=== PATIENT | male | born 1960 | race Caucasian/White ===

== ENCOUNTER 2017-01-24 02:34 | Emergency (ER) | payer OTHER ==
[2017-01-24 03:55] VITALS: BP 193/107; PULSE 75; TEMP 97.5; BMI 37.1
[2017-01-24] MEDS ORDERED: hydrALAZINE HCL 20 MG/ML VIAL IVPUSH ONE (03:57)
[2017-01-24] MEDS ORDERED: hydrALAZINE HCL 20 MG/ML VIAL ONE (04:11)
[2017-01-24 04:37] LABS: BASOPHIL 0.9 % (0-2.0); MCH 29.7 pg (25.7-33.7); MCHC 32.9 g/dl (32.0-35.9); MEAN CELL VOLUME 90.1 fl (80-96); MEAN PLT VOLUME 9.4 fl (7.5-11.1); NEUTROPHILS 64.3 % (42.8-82.8); PLATELET COUNT 222 K/MM3 (134-434); WHITE BLOOD COUNT 9.4 K/mm3 (4.0-10.0)
--- NOTE | 2017-01-24 04:46 | PDOC ---
History of Present Illness - General Chief Complaint: Shortness of Breath Stated Complaint: SOB Time Seen by Provider: 01/24/17 03:05 - History of Present Illness Initial Comments: 01/24/17 04:46 CHIEF COMPLAINT: sob HISTORY OF PRESENT ILLNESS: 56 yo M with hx of HTN presents to ED with cough x 3 days and shortness of breath today. Patient reports the cough as productive. Patient denies any fever, chills, nausea, vomiting, or diarrhea. PAST MEDICAL HISTORY: HTN FAMILY HISTORY: Denies SOCIAL HISTORY: LDenies tobacco, alcohol, illicit drug use. SURGICAL HISTORY: Denies ALLERGIES: No known drug allergies REVIEW OF SYSTEMS General/Constitutional: Denies fever or chills. Denies weakness, weight change. HEENT: Denies change in vision. Denies ear pain or discharge. Denies sore throat. Cardiovascular: Denies chest pain or shortness of breath. Respiratory: Productive cough x 3 days. Denies wheezing or hemoptysis. Gastrointestinal: Denies nausea, vomiting, diarrhea or constipation. Denies rectal bleeding. Genitourinary: Denies dysuria, frequency, or change in urination. Musculoskeletal: Denies joint or muscle swelling or pain. Denies neck or back pain. Skin and breasts: Denies rash or easy bruising. PHYSICAL EXAM General Appearance: Well-appearing, appropriately dressed. No apparent distress. HEENT: EOMI, PERRLA, normal ENT inspection, normal voice, TMs normal, pharynx normal. No conjunctival pallor. No photophobia, scleral icterus. Neck: Supple. Trachea midline. No tenderness, rigidity, carotid bruit, stridor , lymphadenopathy, or thyromegaly. Respiratory/Chest: Lungs CTAB. Cardiovascular: RRR. S1, S2. Gastrointestinal/Abdominal: Normal bowel sounds. Abdomen soft, non-distended. No tenderness or rebound tenderness. No organomegaly, pulsatile mass, guarding , hernia, hepatomegaly, splenomegaly. Musculoskeletal/Extremities: Normal inspection. FROM of all extremities, normal capillary refill. Pelvis Stable. No CVA tenderness. No tenderness to extremities, pedal edema, swelling, erythema or deformity. Integumentary: Appropriate color, dry, warm. 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 Fully oriented, alert. Appropriate mood/affect. Motor strength 5/5. No appreciable EOM palsy, facial droop or sensory deficit. 01/24/17 04:46 01/24/17 05:53 01/24/17 05:58 Past History - Past Medical History Allergies/Adverse Reactions: Allergies Allergy/AdvReac Type Severity Reaction Status Date / Time No Known Allergies Allergy Verified 06/06/15 05:28 Home Medications: Ambulatory Orders Amlodipine Besylate 10 mg PO DAILY 01/24/17 Azithromycin [Zithromax 250mg Tablets -] 250 mg PO ASDIR #5 tablet 01/24/17 Losartan/Hydrochlorothiazide [Losartan-Hctz 100-25 mg Tab] 1 each PO DAILY 01/24 Anemia: No Asthma: No Cancer: No Cardiac Disorders: No CVA: No COPD: No DVT: No Dementia: No Diabetes: No Dialysis: No GI Disorders: No Disorders: No HTN: Yes HIV: No Kidney Stones: No Liver Disease: No Psychiatric Problems: No Seizures: No Thyroid Disease: No Lung CA: No - Surgical History Abdominal Surgery: No Appendectomy: No Cardiac Surgery: No Cholecystectomy: No Gastric Stapling: No GI Surgery: No Lung Surgery: No Neurologic Surgery: No - Immunization History Immunization Up to Date: Yes - Psycho/Social/Smoking Cessation Hx Suicidal Ideation: No Smoking History: Unknown if ever smoked Information on smoking cessation initiated: No Hx Alcohol Use: No Drug/Substance Use Hx: No *Physical Exam - Vital Signs Last Vital Signs Temp Pulse Resp BP Pulse Ox 97.5 F L 75 22 193/107 96 01/24/17 03:48 01/24/17 03:48 01/24/17 03:48 01/24/17 03:48 01/24/17 03:48 ED Treatment Course - LABORATORY CBC & Chemistry Diagram: 01/24/17 04:20 01/24/17 04:20 - RADIOLOGY Radiology Studies Ordered: Category Date Time Status CHEST PA & LAT [RAD] Stat Radiology 01/24/17 03:52 Taken - Medications Given in the ED: ED Medications Discontinued Medications Generic Name Dose Route Start Last Admin Trade Name Freq PRN Reason Stop Dose Admin Hydralazine HCl 10 mg 01/24/17 03:57 01/24/17 04:25 Apresoline Injection - IVPUSH 01/24/17 03:58 10 mg ONCE ONE Administration Medical Decision Making - Medical Decision Making 01/24/17 05:58 56 yo M with hx of HTN presents to ED with cough x 3 days and shortness of breath today. -CBC, CMP, card profile, BNP -EKG, CXR Lab unremarkable. Chest x-ray wet read negative for infiltrate. Clinical presentation consistent with acute bronchitis. Will discharge to home with [facility] and close follow up with PMD. Advised patient to take medication as prescribed and f/u with Dr. Yu within the next 2-3 business days. Advised patient of signs and symptoms for return to ER; patient verbalized understanding and agrees to plan. *DC/Admit/Observation/Transfer Diagnosis at time of Disposition: Bronchitis - Discharge Dispostion Admit: No - Prescriptions Prescriptions: Azithromycin [Zithromax 250mg Tablets -] 250 mg PO ASDIR #5 tablet - Referrals Referrals: Tiana Jacobsen MD [Primary Care Provider] - - Patient Instructions Printed Discharge Instructions: DI for Acute Bronchitis Additional Instructions: Please take medication as prescribed and follow up with Dr. Yu within the next 2-3 business days, as discussed. If you experience chest pain, shortness of breath, dizziness, headache, or any new or worsening symptoms, please return to the ER. Por favor, tome los medicamentos segn lo prescrito y sigue con el Dr. Yu en los prximos 2-3 esposito, segn lo discutido. Si experimenta dolor de pecho, dificultad para respirar, mareos, dolor de radha, o cualquier nuevo o empeoramiento de los sntomas, por favor regrese a la wilber de emergencias. Print Language: AZERI - Post Discharge Activity Work/School Note: Back to Work
[2017-01-24 04:59] LABS: ALBUMIN 3.6 g/dl (3.4-5.0); ALK PHOS 117 U/L (45-117); ANION GAP 12 (8-16); BILIRUBIN,TOTAL 0.5 mg/dL (0.2-1.0); CALCIUM 8.7 mg/dL (8.5-10.1); CO2 27 mmol/L (21-32); COCKROFT - GAULT 152.14; CREATININE 0.8 mg/dL (0.7-1.3); GLUCOSE,RANDOM 110 mg/dL (74-106); SGOT/AST 31 U/L (15-37); SGPT/ALT 31 U/L (12-78); TOT PROT 6.6 g/dl (6.4-8.2)
[2017-01-24 05:01] LABS: TROPONIN I < 0.02 ng/ml (0.00-0.05)
--- NOTE | 2017-01-24 11:01 | EKG ---
Test Reason : Blood Pressure : / mmHG Vent. Rate : 068 BPM Atrial Rate : 068 BPM P-R Int : 148 ms QRS Dur : 088 ms QT Int : 426 ms P-R-T Axes : -03 017 046 degrees QTc Int : 452 ms POOR DATA QUALITY, INTERPRETATION MAY BE ADVERSELY AFFECTED NORMAL SINUS RHYTHM NONSPECIFIC ST ABNORMALITY NO PREVIOUS ECGS AVAILABLE Confirmed by ALAN BARNETT MD ([id number]) on 01/24/2017 11:01:17 AM Referred By: Confirmed By:ALAN BARNETT MD
== END 2017-01-24 06:05 | disposition home or self-care (01) ==
LOC: JER 02:34
PROC: 3E033GC Introduction of Other Therapeutic Substance into Peripheral Vein, Percutaneous Approach (ICD-10-PCS; principal; 2017-01-24)
DX: J40 Bronchitis, not specified as acute or chronic (principal); I10 Essential (primary) hypertension
CPT/HCPCS: 36415; 71020-TC; 80053; 82550; 82553; 83880; 84484; 85025; 93005; 93010; 96374; 99283-25

== ENCOUNTER 2017-10-19 10:54 | Emergency (ER) | payer SELFPAY ==
[2017-10-19 11:10] VITALS: BP 163/105; PULSE 100; TEMP 98.3; BMI 38.7
[2017-10-19] MEDS ORDERED: KETOROLAC TROMETHAMINE 60 MG/2 ML VIAL IM ONE (11:55)
[2017-10-19] MEDS ORDERED: KETOROLAC TROMETHAMINE 60 MG/2 ML VIAL ONE (12:00)
--- NOTE | 2017-10-19 12:43 | PDOC ---
History of Present Illness - General Chief Complaint: Pain Stated Complaint: KNEE PAIN Time Seen by Provider: 10/19/17 11:21 - History of Present Illness Initial Comments: 10/19/17 12:03 CHIEF COMPLAINT: HISTORY OF PRESENT ILLNESS: 57 yo M with hx of HTN and chronic R knee pain presents to [facility] with new onset pain x 2 days. 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 No recent travel or sick contacts. PAST MEDICAL HISTORY: Denies past medical history FAMILY HISTORY: Denies SOCIAL HISTORY: Denies tobacco, alcohol, illicit drug use. SURGICAL HISTORY: Denies ALLERGIES: No known drug allergies REVIEW OF SYSTEMS General/Constitutional: Denies fever or chills. Denies weakness, weight change. HEENT: Denies change in vision. Denies ear pain or discharge. Denies sore throat. Cardiovascular: Denies chest pain or shortness of breath. Respiratory: Denies cough, wheezing, or hemoptysis. Gastrointestinal: Denies nausea, vomiting, diarrhea or constipation. Denies rectal bleeding. Genitourinary: Denies dysuria, frequency, or change in urination. Musculoskeletal: Denies joint or muscle swelling or pain. Denies neck or back pain. Skin and breasts: Denies rash or easy bruising. Neurologic: Denies headache, vertigo, loss of consciousness, or loss of sensation. PHYSICAL EXAM General Appearance: Well-appearing, appropriately dressed. No apparent distress. HEENT: EOMI, PERRLA, normal ENT inspection, normal voice, TMs normal, pharynx normal. No conjunctival pallor. No photophobia, scleral icterus. Neck: Supple. Trachea midline. No tenderness, rigidity, carotid bruit, stridor , lymphadenopathy, or thyromegaly. Respiratory/Chest: Lungs CTAB. No shortness of breath, chest tenderness, respiratory distress, accessory muscle use. No crackles, rales, rhonchi, stridor , wheezing, dullness Cardiovascular: RRR. S1, S2. No JVD, murmur, bradycardia, tachycardia. Vascular Pulses: Dorsalis-Pedis (R): 2+, Dorsalis-Pedis (L): 2+ Gastrointestinal/Abdominal: Normal bowel sounds. Abdomen soft, non-distended. No tenderness or rebound tenderness. No organomegaly, pulsatile mass, guarding , hernia, hepatomegaly, splenomegaly. Lymphatic: No adenopathy, tenderness. Musculoskeletal/Extremities: Limited flexion/extension to R knee. Positive anterior/posterior drawer tests. Normal inspection. FROM of all extremities, normal capillary refill. Pelvis Stable. No CVA tenderness. No tenderness to extremities, pedal edema, swelling, erythema or deformity. Integumentary: Appropriate color, dry, warm. 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 Fully oriented, alert. Appropriate mood/affect. Motor strength 5/5. No appreciable EOM palsy, facial droop or sensory deficit. Past History - Past Medical History Allergies/Adverse Reactions: Allergies Allergy/AdvReac Type Severity Reaction Status Date / Time No Known Allergies Allergy Verified 10/19/17 11:05 Home Medications: Ambulatory Orders Amlodipine Besylate 10 mg PO DAILY 01/24/17 Losartan/Hydrochlorothiazide [Losartan-Hctz 100-25 mg Tab] 1 each PO DAILY 01/24 Diclofenac Sodium [Voltaren -] 75 mg PO BID #14 tablet. 10/19/17 Anemia: No Asthma: No Cancer: No Cardiac Disorders: No CVA: No COPD: No DVT: No Dementia: No Diabetes: No Dialysis: No GI Disorders: No Disorders: No HTN: Yes Kidney Stones: No Liver Disease: No Psychiatric Problems: No Seizures: No Thyroid Disease: No Lung CA: No - Surgical History Abdominal Surgery: No Appendectomy: No Cardiac Surgery: No Cholecystectomy: No Gastric Stapling: No GI Surgery: No Lung Surgery: No Neurologic Surgery: No - Immunization History Immunization Up to Date: No - Suicide/Smoking/Psychosocial Hx Smoking History: Unknown if ever smoked Hx Alcohol Use: Yes Drug/Substance Use Hx: No *Physical Exam - Vital Signs Last Vital Signs Temp Pulse Resp BP Pulse Ox 98.3 F 100 H 18 163/105 97 10/19/17 11:06 10/19/17 11:06 10/19/17 11:06 10/19/17 11:06 10/19/17 11:06 ED Treatment Course - RADIOLOGY Radiology Studies Ordered: Category Date Time Status KNEE 3 POS-RIGHT [RAD] Stat Radiology 10/19/17 11:55 Ordered Medical Decision Making - Medical Decision Making 10/19/17 12:43 57 yo M with hx of HTN and chronic R knee pain presents to fast track with new onset pain x 2 days. -R knee x-ray -Toradol IM Advised patient to take medication as prescribed and follow up with orthopedics this week. Advised patient of signs and symptoms for return to ED. Patient verbalized understanding and agrees to plan. *DC/Admit/Observation/Transfer Diagnosis at time of Disposition: Knee pain Qualifiers: Chronicity: acute Laterality: right Qualified Code(s): M25.561 - Pain in right knee Joint effusion of knee Qualifiers: Laterality: right Qualified Code(s): M25.461 - Effusion, right knee - Discharge Dispostion Disposition: HOME Condition at time of disposition: Stable Admit: No - Prescriptions Prescriptions: Diclofenac Sodium [Voltaren -] 75 mg PO BID #14 tablet.dr - Referrals Referrals: Jamal Davis MD [Staff Physician] - [facility] [Outside] - Patient Instructions Printed Discharge Instructions: DI for Knee Effusion Additional Instructions: Take medications as prescribed. As discussed, you MUST follow up with orthopedics or at [facility] or [facility] for further evaluation and testing of your knee pain. If you develop ANY fever, chills, vomiting, diarrhea, or your knee becomes swollen, hot, or red, or you develop any new or worsening symptoms, please return to the ER IMMEDIATELY. Dish los medicamentos segn lo recetado. [place] se discuti, DEBE realizar un seguimiento EN LOS PROXIMOS DOS HUGHES con ortopedia o en el [facility] o el [facility] para fatemeh evaluacin y prueba adicional de mims dolor de rodilla. Si desarrolla ALGUNA fiebre, escalofros, vmitos, diarrea o se hincha, calienta o enrojece la rodilla, o si desarrolla sntomas nuevos o que empeoran, vuelva a la wilber de emergencias de inmediato. Print Language: LUXEMBOURGER - Post Discharge Activity
== END 2017-10-19 13:44 | disposition home or self-care (01) ==
LOC: JERFT 10:54
PROC: 3E0233Z Introduction of Anti-inflammatory into Muscle, Percutaneous Approach (ICD-10-PCS; principal; 2017-10-19)
DX: M25.461 Effusion, right knee (principal); I10 Essential (primary) hypertension
CPT/HCPCS: 73562-TC-RT-FY; 99281-25

== ENCOUNTER 2021-10-25 08:32 | Emergency (ER) | payer OTHER ==
[2021-10-25 08:39] VITALS: TEMP 97.9; BMI 41.9
[2021-10-25] MEDS ORDERED: ACETAMINOPHEN 500 MG TABLET (FP) PO ONE (09:57)
[2021-10-25] MEDS ORDERED: LIDOCAINE 5% TOPICAL PATCH TP ONE (10:02)
[2021-10-25] MEDS ORDERED: ACETAMINOPHEN 325 MG TABLET (FP) ONE (10:02)
[2021-10-25] MEDS ORDERED: LIDOCAINE 5% TOPICAL PATCH ONE (10:20)
[2021-10-25 10:35] LABS: BASO % 0.2 % (0-2.0); EOS % 0.9 % (0-4.5); HEMATOCRIT 42.7 % (35.4-49); LYMPH % 17.3 % (8-40); MCH 29.5 pg (25.7-33.7); MCHC 32.9 g/dl (32.0-35.9); MEAN CELL VOLUME 89.8 fl (80-96); MEAN PLT VOLUME 9.2 fl (7.5-11.1); MONO % 6.2 % (3.8-10.2); NEUT % 75.4 % (42.8-82.8); PLATELET COUNT 268 10^3/uL (134-434); RBC 4.75 M/mm3 (4.00-5.60); RDW 14.7 % (11.9-15.9); WHITE BLOOD COUNT 9.6 K/mm3 (4.0-10.0)
[2021-10-25 11:01] LABS: ALBUMIN 3.7 g/dl (3.4-5.0); BLOOD UREA NITROGEN 12.6 mg/dL (7-18); CALCIUM 8.6 mg/dL (8.5-10.1)
[2021-10-25 11:04] LABS: CREATININE 0.7 mg/dL (0.55-1.3)
[2021-10-25 11:06] LABS: BILIRUBIN,TOTAL 0.9 mg/dL (0.2-1); TOT PROT 7.2 g/dl (6.4-8.2)
[2021-10-25 16:33] VITALS: BP 175/96; PULSE 67
[2021-10-25] MEDS ORDERED: LIDOCAINE PATCH REMOVAL MC SCH (22:00)
== END 2021-10-25 15:30 | disposition home or self-care (01) ==
LOC: JER 08:32
DX: S20.219A Contusion of unspecified front wall of thorax, initial encounter (principal); W22.01XA Walked into wall, initial encounter
CPT/HCPCS: 36415; 71045-TC-FY; 71101-TC-LT-FY; 71250-TC; 80053; 85025; 93005; 93010; 99285-25

== ENCOUNTER 2022-11-09 20:08 | Emergency (ER) | payer OTHER ==
[2022-11-09 20:19] VITALS: BP 193/116; PULSE 98; RESP 20; TEMP 97.9; BMI 43.7
[2022-11-09] MEDS ORDERED: DALBAVANCIN HCL 1,500 MG in DEXTROSE 5%-WATER - 500 ML IVPB ONE (21:04)
[2022-11-09] MEDS ORDERED: TETANUS AND DIPHTHERIA TOXOID 0.5 ML DISP.SYRIN IM ONE (21:04)
[2022-11-09] MEDS ORDERED: DIPHTH,PERTUSS(ACELL),TET 0.5 ML DISP.SYRIN IM ONE (21:12)
== END 2022-11-09 23:09 | disposition home or self-care (01) ==
LOC: JERFT 20:08
PROC: 3E033GC Introduction of Other Therapeutic Substance into Peripheral Vein, Percutaneous Approach (ICD-10-PCS; principal; 2022-11-09)
PROC: 3E0234Z Introduction of Serum, Toxoid and Vaccine into Muscle, Percutaneous Approach (ICD-10-PCS; principal; 2022-11-09)
DX: S91.331A Puncture wound without foreign body, right foot, initial encounter (principal); W45.0XXA Nail entering through skin, initial encounter
CPT/HCPCS: 73630-TC-RT-FY; 99291; J0875

== ENCOUNTER 2023-01-27 08:55 | Emergency (ER) | payer OTHER ==
[2023-01-27 09:02] VITALS: BP 177/96; PULSE 85; RESP 18; TEMP 97.9; BMI 39.1
[2023-01-27] MEDS ORDERED: ACETAMINOPHEN 325 MG TABLET (FP) PO ONE (10:42)
[2023-01-27] MEDS ORDERED: ACETAMINOPHEN 325 MG TABLET (FP) ONE (11:37)
[2023-01-27 11:50] LABS: HEMATOCRIT 40.2 % (35.4-49); HEMOGLOBIN 13.4 GM/dL (11.7-16.9); MCH 29.1 pg (25.7-33.7); MCHC 33.3 g/dl (32.0-35.9); MEAN CELL VOLUME 87.4 fl (80-96); MEAN PLT VOLUME 8.8 fl (7.5-11.1); PLATELET COUNT 270 10^3/uL (134-434); RDW 14.3 % (11.9-15.9); WHITE BLOOD COUNT 12.7 K/mm3 (4.0-10.0)
[2023-01-27 12:08] LABS: POTASSIUM 3.7 mmol/L (3.5-5.1)
[2023-01-27 12:10] LABS: CALCIUM 9.2 mg/dL (8.5-10.1)
[2023-01-27 12:11] LABS: ALBUMIN 3.5 g/dl (3.4-5.0); BLOOD UREA NITROGEN 18.7 mg/dL (7-18)
[2023-01-27 12:13] LABS: URIC ACID 6.7 mg/dL (2.6-7.2)
[2023-01-27 12:14] LABS: CREATININE 0.8 mg/dL (0.55-1.3)
[2023-01-27 12:15] LABS: BILIRUBIN,TOTAL 0.6 mg/dL (0.2-1); TOT PROT 7.5 g/dl (6.4-8.2)
[2023-01-27 12:30] LABS: ERYTHROCYTE SEDIMENTATION RATE 65 mm/hr (0-20)
[2023-01-27] MEDS ORDERED: KETOROLAC TROMETHAMINE 30 MG/1 ML VIAL IM ONE (14:11)
[2023-01-27 14:42] LABS: BF WBC & OTHER NUCLEATED CELLS 4589 /mm3
[2023-01-27] MEDS ORDERED: KETOROLAC TROMETHAMINE 30 MG/1 ML VIAL ONE (15:02)
[2023-01-27 15:29] LABS: BODY FLUID MONOCYTE 27 %
== END 2023-01-27 16:14 | disposition home or self-care (01) ==
LOC: JERFT 08:55
PROC: 0S9C3ZZ Drainage of Right Knee Joint, Percutaneous Approach (ICD-10-PCS; principal; 2023-01-27)
PROC: 3E0233Z Introduction of Anti-inflammatory into Muscle, Percutaneous Approach (ICD-10-PCS; 2023-01-27)
DX: M25.561 Pain in right knee (principal); M25.471 Effusion, right ankle
CPT/HCPCS: 36415; 73562-TC-RT-FY; 80053; 84550; 85027; 85651; 86140; 87070; 87075; 87205; 89060; 93971-TC; 99285-25

== ENCOUNTER 2023-10-07 19:50 | Inpatient (IN) | payer OTHER ==
[2023-10-07 20:14] VITALS: BMI 41.1
[2023-10-07] MEDS ORDERED: METOCLOPRAMIDE HCL INJECTION 10 MG/2 ML VIAL IVPUSH ONE (21:17)
[2023-10-07] MEDS ORDERED: LACTATED RINGERS SOLUTION 1000 ML INFUS.BAG IV ONE (21:17)
[2023-10-07 21:39] LABS: BASO % 0.2 % (0-2.0); EOS % 0.2 % (0-4.5); HEMOGLOBIN 14.2 GM/dL (11.7-16.9); LYMPH % 5.1 % (8-40); MEAN CELL VOLUME 90.6 fl (80-96); MEAN PLT VOLUME 8.9 fl (7.5-11.1); MONO % 5.8 % (3.8-10.2); NEUT % 88.7 % (42.8-82.8); PLATELET COUNT 223 10^3/uL (134-434); RBC 4.74 M/mm3 (4.00-5.60); RDW 14.7 % (11.9-15.9); WHITE BLOOD COUNT 19.1 K/mm3 (4.0-10.0)
[2023-10-07] MEDS ORDERED: METOCLOPRAMIDE HCL INJECTION 10 MG/2 ML VIAL ONE (21:43)
[2023-10-07 21:48] LABS: INR 1.18 (0.83-1.09); PROTHROMBIN TIME (PATIENT) 13.7 SEC (9.7-13.0)
[2023-10-07 21:51] LABS: ACTIVATED PTT 29.3 SECONDS (25.2-36.5)
[2023-10-07 22:01] LABS: POTASSIUM 4.3 mmol/L (3.5-5.1)
[2023-10-07 22:05] LABS: CALCIUM 8.9 mg/dL (8.5-10.1)
[2023-10-07 22:06] LABS: EPI CELLS 2 /uL (0-25.1); HYALINE CASTS 0 /uL (0-3.1); PH,URINE 5.5 (5.0-8.0); URINE APPEARANCE CLOUDY; URINE BACTERIA 6393 /uL (0-1359); URINE BILIRUBIN NEGATIVE (NEGATIVE); URINE COLOR YELLOW; URINE GLUCOSE (UA) NEGATIVE (NEGATIVE); URINE KETONE NEGATIVE (NEGATIVE); URINE LEUK ESTERASE 3+ (NEGATIVE); URINE NITRITE NEGATIVE (NEGATIVE); URINE PROTEIN 1+ (NEGATIVE); URINE RBC 37 /uL (0-23.9); URINE UROBILINOGEN 0.2 mg/dL (0.2-1.0); URINE WBC 1337 /uL (0-25.8)
[2023-10-07 22:06] LABS: ALBUMIN 3.5 g/dl (3.4-5.0); BLOOD UREA NITROGEN 22.5 mg/dL (7-18)
[2023-10-07 22:09] LABS: CREATININE 1.4 mg/dL (0.55-1.3)
[2023-10-07 22:10] LABS: BILIRUBIN,TOTAL 1.9 mg/dL (0.2-1); TOT PROT 7.4 g/dl (6.4-8.2)
[2023-10-07] MEDS ORDERED: CEFTRIAXONE 1,000 MG in DEXTROSE 5%-WATER - 50 ML IVPB ONE (22:12)
[2023-10-07] MEDS ORDERED: CEFTRIAXONE 1 GM/50 ML BAG ONE (22:15)
[2023-10-08] MEDS ORDERED: CIPROFLOXACIN 400 MG/D5W 400 MG/200 ML IVPB IVPB ONE (01:14)
[2023-10-08] MEDS: LACTATED RINGERS SOLUTION 1,000 ML IV SCH ×2 (01:15→15:06)
[2023-10-08 06:54] LABS: HEMATOCRIT 40.1 % (35.4-49); HEMOGLOBIN 13.1 GM/dL (11.7-16.9); MCHC 32.7 g/dl (32.0-35.9); MEAN CELL VOLUME 91.9 fl (80-96); MEAN PLT VOLUME 9.4 fl (7.5-11.1); PLATELET COUNT 191 10^3/uL (134-434); RBC 4.37 M/mm3 (4.00-5.60); RDW 14.7 % (11.9-15.9)
[2023-10-08] MEDS ORDERED: HEPARIN NA (PORCINE) 5,000 UNITS/ML 1ML VIAL ONE ×2 (06:59→14:15)
[2023-10-08] MEDS: HEPARIN NA (PORCINE) 5,000 UNITS/ML 1ML VIAL SQ SCH ×3 (07:03→21:45)
[2023-10-08 07:14] LABS: POTASSIUM 3.5 mmol/L (3.5-5.1)
[2023-10-08] MEDS: INSULIN ASPART SLIDING SCALE (NOVOLOG) 1 VIAL SQ SCH ×4 (07:15→22:12)
[2023-10-08 07:17] LABS: ALBUMIN 3.2 g/dl (3.4-5.0); BLOOD UREA NITROGEN 17.1 mg/dL (7-18); MAGNESIUM 1.7 mg/dL (1.8-2.4)
[2023-10-08 07:20] LABS: PHOSPHOROUS 2.1 mg/dL (2.5-4.9)
[2023-10-08 07:21] LABS: BILIRUBIN,TOTAL 1.8 mg/dL (0.2-1)
[2023-10-08 07:22] LABS: TOT PROT 6.7 g/dl (6.4-8.2)
[2023-10-08 08:53] LABS: ANISOCYTOSIS 0; MACROCYTOSIS 0
[2023-10-08] MEDS ORDERED: CEFTRIAXONE 1 GM/50 ML BAG ONE (09:57)
[2023-10-08] MEDS ORDERED: CEFTRIAXONE 1 GM in DEXTROSE 5%-WATER - 50 ML IVPB SCH (10:00)
[2023-10-08] MEDS: TAMSULOSIN HCL 0.4 MG CAP PO SCH (10:27)
[2023-10-08] MEDS: FINASTERIDE 5 MG TABLET (FP) PO SCH (10:27)
[2023-10-08] MEDS: CEFTRIAXONE 1 GM in DEXTROSE 5%-WATER - 50 ML IVPB SCH (10:27)
[2023-10-08] MEDS ORDERED: ACETAMINOPHEN 325 MG TABLET (FP) ONE (14:14)
[2023-10-08] MEDS: ACETAMINOPHEN 325 MG TABLET (FP) PO PRN (14:19)
[2023-10-08] MEDS ORDERED: FLU VACCINE (FLULAVAL) PF 60 MCG/0.5 ML SYRINGE 2023-2024 IM ONE (20:00)
[2023-10-09] MEDS: LACTATED RINGERS SOLUTION 1,000 ML IV SCH (01:58)
[2023-10-09] MEDS: INSULIN ASPART SLIDING SCALE (NOVOLOG) 1 VIAL SQ SCH ×3 (06:02→16:56)
[2023-10-09] MEDS: HEPARIN NA (PORCINE) 5,000 UNITS/ML 1ML VIAL SQ SCH ×3 (06:02→23:11)
[2023-10-09] MEDS: TAMSULOSIN HCL 0.4 MG CAP PO SCH (09:09)
[2023-10-09] MEDS ORDERED: MAGNESIUM SULF 50% (8.12 MEQ/2 ML-1 GM VIAL) IVPB ONE (09:30)
[2023-10-09] MEDS ORDERED: POTASSIUM CHLORIDE ORAL LIQUID 20 MEQ/15 ML PO ONE (09:30)
[2023-10-09 10:12] LABS: BASO % 0.1 % (0-2.0); EOS % 0.4 % (0-4.5); HEMATOCRIT 37.4 % (35.4-49); HEMOGLOBIN 12.2 GM/dL (11.7-16.9); LYMPH % 8.2 % (8-40); MCHC 32.8 g/dl (32.0-35.9); MEAN CELL VOLUME 91.7 fl (80-96); MEAN PLT VOLUME 9.3 fl (7.5-11.1); MONO % 6.1 % (3.8-10.2); NEUT % 85.2 % (42.8-82.8); PLATELET COUNT 178 10^3/uL (134-434); RBC 4.08 M/mm3 (4.00-5.60); RDW 14.4 % (11.9-15.9); WHITE BLOOD COUNT 15.4 K/mm3 (4.0-10.0)
[2023-10-09] MEDS: CEFTRIAXONE 1 GM in DEXTROSE 5%-WATER - 50 ML IVPB SCH (10:13)
[2023-10-09] MEDS: FINASTERIDE 5 MG TABLET (FP) PO SCH (10:14)
[2023-10-09 10:22] LABS: POTASSIUM 3.5 mmol/L (3.5-5.1)
[2023-10-09 10:28] LABS: CALCIUM 8.8 mg/dL (8.5-10.1)
[2023-10-09 10:29] LABS: ALBUMIN 2.6 g/dl (3.4-5.0); BLOOD UREA NITROGEN 13.2 mg/dL (7-18)
[2023-10-09 10:32] LABS: BILIRUBIN,DIRECT 0.3 mg/dL (0.0-0.2); CREATININE 0.9 mg/dL (0.55-1.3)
[2023-10-09 10:33] LABS: BILIRUBIN,TOTAL 0.8 mg/dL (0.2-1); TOT PROT 5.9 g/dl (6.4-8.2)
[2023-10-09] MEDS: NAPH,MB-DB/K PH,MBDB POWDER PACKET PO SCH ×2 (13:09→23:11)
[2023-10-09] MEDS: ACETAMINOPHEN 325 MG TABLET (FP) PO PRN (20:25)
[2023-10-10] MEDS: HEPARIN NA (PORCINE) 5,000 UNITS/ML 1ML VIAL SQ SCH ×3 (06:40→21:25)
[2023-10-10] MEDS: NAPH,MB-DB/K PH,MBDB POWDER PACKET PO SCH (06:40)
[2023-10-10] MEDS: ACETAMINOPHEN 325 MG TABLET (FP) PO PRN ×2 (06:41→21:25)
[2023-10-10] MEDS: TAMSULOSIN HCL 0.4 MG CAP PO SCH (09:26)
[2023-10-10] MEDS: CEFTRIAXONE 1 GM in DEXTROSE 5%-WATER - 50 ML IVPB SCH (09:26)
[2023-10-10] MEDS: FINASTERIDE 5 MG TABLET (FP) PO SCH (09:26)
[2023-10-10 10:07] LABS: BASO % 0.1 % (0-2.0); EOS % 0.9 % (0-4.5); HEMATOCRIT 37.4 % (35.4-49); HEMOGLOBIN 12.4 GM/dL (11.7-16.9); MCH 30.3 pg (25.7-33.7); MCHC 33.1 g/dl (32.0-35.9); MEAN CELL VOLUME 91.4 fl (80-96); MEAN PLT VOLUME 9.3 fl (7.5-11.1); MONO % 6.6 % (3.8-10.2); NEUT % 82.4 % (42.8-82.8); PLATELET COUNT 184 10^3/uL (134-434); RBC 4.09 M/mm3 (4.00-5.60); RDW 14.5 % (11.9-15.9); WHITE BLOOD COUNT 9.2 K/mm3 (4.0-10.0)
[2023-10-10 10:32] LABS: POTASSIUM 3.7 mmol/L (3.5-5.1)
[2023-10-10 10:44] LABS: ALBUMIN 2.6 g/dl (3.4-5.0)
[2023-10-10 10:45] LABS: BILIRUBIN,TOTAL 0.4 mg/dL (0.2-1); CALCIUM 8.4 mg/dL (8.5-10.1)
[2023-10-10 10:46] LABS: BLOOD UREA NITROGEN 15.2 mg/dL (7-18); CREATININE 0.8 mg/dL (0.55-1.3); MAGNESIUM 2.3 mg/dL (1.8-2.4); PHOSPHOROUS 3.2 mg/dL (2.5-4.9)
[2023-10-10 10:52] LABS: TOT PROT 6.1 g/dl (6.4-8.2)
[2023-10-11] MEDS: HEPARIN NA (PORCINE) 5,000 UNITS/ML 1ML VIAL SQ SCH ×2 (05:54→16:52)
[2023-10-11 10:23] LABS: BASO % 0.3 % (0-2.0); EOS % 1.2 % (0-4.5); HEMATOCRIT 38.1 % (35.4-49); HEMOGLOBIN 12.6 GM/dL (11.7-16.9); LYMPH % 19.5 % (8-40); MCH 30.2 pg (25.7-33.7); MCHC 33.1 g/dl (32.0-35.9); MEAN CELL VOLUME 91.2 fl (80-96); MEAN PLT VOLUME 8.9 fl (7.5-11.1); MONO % 11.5 % (3.8-10.2); NEUT % 67.5 % (42.8-82.8); PLATELET COUNT 207 10^3/uL (134-434); RBC 4.18 M/mm3 (4.00-5.60); RDW 14.3 % (11.9-15.9); WHITE BLOOD COUNT 6.8 K/mm3 (4.0-10.0)
[2023-10-11 10:43] LABS: POTASSIUM 3.8 mmol/L (3.5-5.1)
[2023-10-11 10:50] LABS: ALBUMIN 2.6 g/dl (3.4-5.0); BLOOD UREA NITROGEN 13.8 mg/dL (7-18)
[2023-10-11 10:53] LABS: CREATININE 0.7 mg/dL (0.55-1.3)
[2023-10-11 10:55] LABS: BILIRUBIN,TOTAL 0.3 mg/dL (0.2-1); TOT PROT 6.3 g/dl (6.4-8.2)
[2023-10-11 11:24] VITALS: RESP 22
[2023-10-11] MEDS: CEFTRIAXONE 1 GM in DEXTROSE 5%-WATER - 50 ML IVPB SCH (11:24)
[2023-10-11] MEDS: FINASTERIDE 5 MG TABLET (FP) PO SCH (11:26)
[2023-10-11] MEDS: TAMSULOSIN HCL 0.4 MG CAP PO SCH (11:26)
[2023-10-11 14:59] VITALS: BP 154/85; PULSE 74; TEMP 98.4
== END 2023-10-11 14:00 | disposition home or self-care (01) | DRG 720 ==
LOC: JER 19:50 → JERBED 22:29 → J6S 10-08 17:55
PROVIDERS: ADMIT Internal Medicine; ATTEND Internal Medicine
DX: A41.51 Sepsis due to Escherichia coli [E. coli] (principal); N17.9 Acute kidney failure, unspecified; I10 Essential (primary) hypertension; E78.5 Hyperlipidemia, unspecified; N39.0 Urinary tract infection, site not specified; E11.9 Type 2 diabetes mellitus without complications; E86.0 Dehydration; N41.0 Acute prostatitis; N40.1 Benign prostatic hyperplasia with lower urinary tract symptoms; D35.02 Benign neoplasm of left adrenal gland; D72.829 Elevated white blood cell count, unspecified
CPT/HCPCS: 0241U-QW; 36415; 71046-TC-FY; 74176-TC; 76705-TC; 80048; 80053; 80076; 81003; 82962; 83036; 83605; 83735; 84100; 84484; 85025; 85610; 85730; 87040; 87086; 87186; 90686; 93005; 93010; 99285-25; G0008; J1644

== ENCOUNTER 2025-03-02 21:37 | Emergency (ER) | payer OTHER ==
[2025-03-02 21:43] VITALS: TEMP 100.9; BMI 38.7
[2025-03-02] MEDS: SODIUM CHLORIDE 0.9% 500 ML INFUS.BAG IV ONE (23:43)
[2025-03-02 23:55] LABS: ABSOLUTE IMMATURE GRANULOCYTES 0.04 x10^3/uL (0.0-0.031); BASOPHILS # 0.01 x10^3/uL (0.01-0.08); HEMATOCRIT 40.6 % (40.1-51.0); HEMOGLOBIN 13.3 g/dL (13.7-17.5); MCHC 32.8 g/dl (32.3-36.5); MEAN CELL VOLUME 91.2 fl (79.0-92.2); MEAN PLT VOLUME 11.3 fl (9.4-12.4); MONOCYTE # 0.37 x10^3/uL (0.30-0.82); MONOCYTE % 4.7 % (5.3-12.2); PLATELET COUNT 146 x10^3/uL (163-337)
[2025-03-03 00:26] LABS: POTASSIUM 4.4 mmol/L (3.5-5.1)
[2025-03-03 00:28] LABS: ALBUMIN 3.5 g/dl (3.4-5.0); BLOOD UREA NITROGEN 25.4 mg/dL (7-18); CALCIUM 8.9 mg/dL (8.5-10.1)
[2025-03-03 00:32] LABS: CREATININE 1.1 mg/dL (0.55-1.3)
[2025-03-03 00:33] LABS: BILIRUBIN,TOTAL 0.3 mg/dL (0.2-1); TOT PROT 6.8 g/dl (6.4-8.2)
[2025-03-03 00:48] VITALS: BP 135/81; PULSE 88; RESP 18
[2025-03-03] MEDS ORDERED: ACETAMINOPHEN 500 MG TABLET (FP) ONE (00:48)
[2025-03-03] MEDS: ACETAMINOPHEN 500 MG TABLET (FP) PO ONE (00:50)
== END 2025-03-03 00:51 | disposition home or self-care (01) ==
LOC: JERFT 21:37 → JER 21:37
DX: R50.9 Fever, unspecified (principal); B34.9 Viral infection, unspecified; R53.1 Weakness; M79.10 Myalgia, unspecified site
CPT/HCPCS: 0241U-QW; 36415; 71046-TC-FY; 80053; 85025; 99284-25